=== PATIENT | male | born 1940 | race Caucasian/White ===

== ENCOUNTER 2018-12-10 20:46 | Observation (INO) ==
--- NOTE | 2018-12-11 00:11 | Internal Med History&Physical ---
Date of Encounter: 12/11/18 Time of Encounter: 00:09 Internal Medicine - H&P: HPI Admitted From: Home History of present illness: Mr. YEAGER is a 78 year old male with past medical history of atrial fibrillation on Coumadin presented to [facility] transfer from [facility]. [id number]-hycc encounter occurred at 12:10am. Patient stated the yesterday evening having chest discomfort on the left side nonradiating and worsened with laying on his left, no alleviation lasting for a <10 minutes intermittent with no association of nausea, vomiting, diaphoresis, shortness of breath, abdominal pain. Patient then went to bed and woke up and was trying to do his bicycle exercise that he normally can do for an hour. Patient states this morning patient was unable to do even 10 minutes. Patient then subsequently went to urgent care where he was sent to the ER and while in the ER patient was transferred here. Patient admits of having history of A. fib and has been on warfarin. Patient reported history of cardiac murmur that is being followed up with no intervention being done previously. Personally reviewed patient's past medical, surgical, family and social history. Patient states that has history of large prostate where he underwent surgery and has been taking tamsulosin for BPH. Patient denied history of kidney disease in the past. Family significant for paternal on my, does not smoke drink or do drugs lives and functions very independent at home. No recent surgeries with most recent being a surgery in 2007 knee replacement. CODE STATUS was discussed and the patient proceeded with full code. Past Med Surg Social Fam HX - Past Medical History Medical history: atrial fibrillation, diabetes, hyperlipidemia, hypertension Psychiatric history: no psych history - Past Surgical History Additional surgical history: appy, tonsilectomy, skin grafts, prostate surgery, knee replacement - Social History Smoking Status: Never smoker Smokeless Tobacco Status: No Alcohol use: rarely Drug use: none Internal Medicine - H&P: Meds Allergy/AdvReac Type Severity Reaction Status Date / Time No Known Allergies Allergy Verified 12/11/18 00:21 All Systems PM: A 10-system review of systems was performed and is negative for pertinent findings except as documented above in the HPI. Review of systems: General: No unintentional weightloss, No fever Head: No headahce, No injury. Ears: No discharge, No earache Eyes: No drainage, No eye pain Mouth and Throat: No new ulcers, No pain Nose and Sinus: No new congestion, No pain, Respiratory: No cough, No sputum production, No dyspnea Cardiovascular: + chest pain, No palpitations. Gastrointestinal: No nausea, No vomiting. No abdominal pain. Genital Tract: No discharge, No pain Urinary Tract: No dysuria, No discharge. MSK: + joint pain, No new/worsening muscle ache. Endocrine: No cold intolerance, No polyuria Psychological: No suicidal, No homocidal ideation. - Constitutional Vitals: Temp Pulse Resp BP Pulse Ox 98.7 F 76 15 140/90 95 12/10/18 23:30 12/10/18 23:30 12/10/18 23:30 12/10/18 23:30 12/10/18 23:30 Exam: General Appearance: Appearing as age, well-nourished in mild acute distress. Head: Atraumatic normocephalic Skin: Normal texture, normal turgor, warm, dry. Keratotic growth noted on the left hand. Eyes: Conjunctivae not pale with no erythema, drainage, or ulcers. Anicteric. strabismus Neck: No Lymphadenopathy in the anterior/posterior cervical chain. No thyromegaly, masses or ulcers. Trachea midline. Heart: tachycardic, grade 5 systolic murmurs. Capillary refill 3 seconds Lungs: No accessory muscle usage, lungs clear to auscultation bilaterally, no wheezes or crackles. Extremities: trace pitting edema, No clubbing, No cyanosis. Abdomen: Non-distended, normoactive bowel sounds. non-tender to palpation, no hepatomegally. No guarding. Neuro: AOx3 with no new sensory loss or focal deficits. MSK: Strength 5/5 Upper extremity equal bilaterally. Strength 5/5 Lower extremity equal bilaterally Internal Med - H&P Results - Labs CBC & Chem 7: 12/11/18 00:22 12/11/18 00:22 - Summary of Assessment and Plan Summary of Assessment and Plan: 1.Chest pain: EKG my interpretation shows suspicion for Atrial flutter. Troponin trending. Cardiology consultation 2.Left Ureter stone with hydronephrosis: Complicated with ALYSSIA. Normal saline with tamsulosin. Urology consulted. Appreciated recommendations. NPO past midnight possible procedure in the AM. 3.Atrial flutter: history of A.fib on coumadin Cardiology consultation. 4. Severe aortic stenosis: Symptomatic: Patient reported was able to do treadmill for 1 hour each morning and is now decreased to 10 minutes. Cardiology consultation. Echo report reviewed which showed a PA pressure of 32. Repeat echo pending DVT prophylaxis: Heparin Disposition: Patient anticipated hospital stay less than 2 days - Time Spent With Patient Total time spent is greater than 38 minutes 50% in coordination of care (as documented) at patient's floor/unit and/or counseling patient: Greater than 35 minutes
[2018-12-11 00:35] LABS: Basophils % 0.4 %; Eosinophils % 0.2 %; Hematocrit 47.8 % (37.5-50.1); Hemoglobin 16.2 g/dL (12.9-16.9); Immature Granulocytes % 0.4 % (0-4); Lymphocytes # 0.9 K/mcL (0.6-4.6); Mean Corpuscular HGB Conc 33.9 g/dL (31.6-35.5); Mean Corpuscular Hemoglobin 32.5 pg (28.0-33.3); Mean Platelet Volume 9.2 fL (9.4-12.4); Monocytes # 0.9 K/mcL (0.0-1.3); Monocytes % 11.2 %; Neutrophils # 6.2 K/mcL (1.6-8.9); Platelet Count 119 K/mcL (140-400); Red Blood Count 4.98 M/mcL (4.19-5.50); Red Cell Distribution Width 12.9 % (11.5-14.5); Segmented Neutrophils % 76.8 %
[2018-12-11 00:42] LABS: INR 3.3; Prothrombin Time 37.5 Seconds (9.4-12.1)
[2018-12-11 00:56] LABS: Calcium 9.6 mg/dL (8.6-10.3); Potassium 4.3 mEq/L (3.5-5.1); Troponin I 0.03 ng/mL (< 0.04)
--- NOTE | 2018-12-11 01:20 | Event Note ---
Date of Encounter: 12/11/18 Time of Encounter: 01:19 Labs showed improved Cr. Patient denied hx of CKD. Acute kidney disease: Continue IVF, discussed case with urology. will keep NPO past midnight for possible intervention.
[2018-12-11 01:28] LABS: Magnesium 2.5 mg/dL (1.6-2.6); Phosphorous 2.2 mg/dL (2.7-4.5)
[2018-12-11] MEDS ORDERED: Acetaminophen 325 MG TABLET PO PRN ×2 (01:30→16:43)
[2018-12-11] MEDS: *HR* OxyCODONE Immed Rel 5 MG TABLET PO PRN ×3 (03:00→15:10)
[2018-12-11] MEDS ORDERED: 0.9 % Sodium Chloride 1,000 ML IVC SCH ×2 (08:00→16:43)
--- NOTE | 2018-12-11 08:29 | Urology - Consult Note ---
Date of Encounter: 12/11/18 Time of Encounter: 08:27 - Assessment and Plan (1) Ureteral stone with hydronephrosis Current Visit: Yes Status: Acute Assessment and plan: Patient has been acutely ill from the distal ureteral stone. Plan to proceed with ureteroscopic stone extraction and ureteral stent placement today. Patient is amenable to this plan. All questions were addressed. Alternatively, we did discuss trial of passage. (2) Acute renal insufficiency Current Visit: Yes Status: Acute Assessment and plan: Unknown baseline renal function. I suspect he has acute renal insufficiency secondary to the stone. Should resolve with stone extraction and stent placement (3) Renal lesion Current Visit: Yes Status: Acute Assessment and plan: CT scan identified a 3.7 cm renal lesion not fully evaluated because no contrast was seen. We will proceed with contrast imaging study as an outpatient to verify benign in appearance Urology CN:PATITO Consult date: 12/11/18 Reason for consult Urology: Gross Hematuria History of present illness: 78-year-old male transferred from [facility] with acute illness over the last 3 days. Acute renal insufficiency. Hematuria. CT scan reveals a 2 mm distal left ureteral stone. He continues to have discomfort. He has no history of kidney stones. Creatinine at [facility] was 1.9. Currently 1.77. Past Med Surg Social Fam HX - Past Medical History Medical history: atrial fibrillation, diabetes, hyperlipidemia, hypertension Psychiatric history: no psych history - Past Surgical History Additional surgical history: appy, tonsilectomy, skin grafts, prostate surgery, knee replacement - Social History Smoking Status: Never smoker Smokeless Tobacco Status: No Alcohol use: rarely Drug use: none Medications and Allergies Ascorbic Acid [Vitamin C] 500 mg PO DAILY 12/11/18 [History] Ergocalciferol (VITAMIN D2) [Vitamin D2] 50,000 unit PO QWEEK 12/11/18 [History] Ferrous Sulfate [Iron] 325 mg PO BID 12/11/18 [History] Furosemide [Lasix] 20 mg PO DAILY 12/11/18 [History] GlipiZIDE [Glucotrol] 10 mg PO 0800 12/11/18 [History] Loratadine [Allergy Relief] 10 mg PO DAILY 12/11/18 [History] Pantoprazole Sodium 40 mg PO DAILY 12/11/18 [History] Simvastatin [Zocor] 20 mg PO HS 12/11/18 [History] Tamsulosin [Flomax] 0.4 mg PO DAILY 12/11/18 [History] Warfarin [Coumadin] 5 mg PO 1800 12/11/18 [History] Allergy/AdvReac Type Severity Reaction Status Date / Time No Known Allergies Allergy Verified 12/11/18 00:21 Review of Systems - Constitutional fatigue, no fever(s) - EENT Nose, mouth and throat: no dizziness - Cardiovascular no chest pain - Respiratory no cough - Gastrointestinal abdominal pain, nausea - Genitourinary hematuria, urinary hesitancy, urinary urgency - Musculoskeletal back pain - Integumentary no lesions - Neurological no confusion - Psychiatric no anxiety - Hematologic/Lymphatic no easy bleeding - Allergic/Immunologic no throat swelling Exam Initial Vital Signs Temp Pulse Resp BP Pulse Ox 98.7 F 76 15 140/90 95 12/10/18 23:30 12/10/18 23:30 12/10/18 23:30 12/10/18 23:30 12/10/18 23:30 - General physical appearance Present: well developed, no distress, no pain - Eyes Present: PERRL - ENT Present: normal nares, no hearing loss - Neck Present: no masses, no lymphadenopathy - Respiratory Present: normal respiratory effort - Cardiovascular Cardiovascular exam IM: RRR - Abdomen Abdomen: Present: soft. Absent: suprapubic tenderness - Integumentary Present: no rash, no abnormal pigmentation, other (Cutaneous horn on his left hand) - Neurologic Present: normal coordination. Absent: disoriented, confused - Musculoskeletal Present: normal gait Urology Results - Labs 12/11/18 00:22 12/11/18 00:22 Abnormal lab results Plt Count 119 K/mcL (140-400) L 12/11/18 00:22 MPV 9.2 fL (9.4-12.4) L 12/11/18 00:22 PT 37.5 Seconds (9.4-12.1) H 12/11/18 00:22 Carbon Dioxide 21 mEq/L (23-29) L 12/11/18 00:22 Creatinine 1.77 mg/dL (0.70-1.30) H 12/11/18 00:22 Est GFR ( Amer) 45 (> 60) L 12/11/18 00:22 Est GFR (Non-Af Amer) 37 (> 60) L 12/11/18 00:22 Glucose 158 mg/dL (70-105) H 12/11/18 00:22 POC Glucose 151 mg/dL (70-99) H 12/11/18 00:30 Phosphorus 2.2 mg/dL (2.7-4.5) L 12/11/18 00:22 Diabetes panel 12/11/18 Range/Units 00:22 Sodium 136 (136-145) mEq/L Potassium 4.3 (3.5-5.1) mEq/L Chloride 105 (98-107) mEq/L Carbon Dioxide 21 L (23-29) mEq/L BUN 20 (8-23) mg/dL Creatinine 1.77 H (0.70-1.30) mg/dL Glucose 158 H (70-105) mg/dL Calcium 9.6 (8.6-10.3) mg/dL Calcium panel 12/11/18 Range/Units 00:22 Calcium 9.6 (8.6-10.3) mg/dL Phosphorus 2.2 L (2.7-4.5) mg/dL Pituitary panel 12/11/18 Range/Units 00:22 Sodium 136 (136-145) mEq/L Potassium 4.3 (3.5-5.1) mEq/L Chloride 105 (98-107) mEq/L Carbon Dioxide 21 L (23-29) mEq/L BUN 20 (8-23) mg/dL Creatinine 1.77 H (0.70-1.30) mg/dL Glucose 158 H (70-105) mg/dL Calcium 9.6 (8.6-10.3) mg/dL Adrenal panel 12/11/18 Range/Units 00:22 Sodium 136 (136-145) mEq/L Potassium 4.3 (3.5-5.1) mEq/L Chloride 105 (98-107) mEq/L Carbon Dioxide 21 L (23-29) mEq/L BUN 20 (8-23) mg/dL Creatinine 1.77 H (0.70-1.30) mg/dL Glucose 158 H (70-105) mg/dL Calcium 9.6 (8.6-10.3) mg/dL All other labs normal. Consult Discharge Plan - Plan Referrals: Jose Elias Larose, [Primary Care Provider] -
--- NOTE | 2018-12-11 08:33 | Anesthesia Evaluation PreOp ---
Date of Encounter: 12/31/18 - Past History Planned Operation: cysto stent stone extraction Cardiac History: HTN, Hyperlipidemia, Arrhythmia (a fib), Other (severe aortic stenosis Valve area 0.89 cm2 from 03/19.) Other Medical History: Diabetes Type II Anesthesia History: No Prior Anesthetic Complications, Past Anesthesia (appy, tonsilectomy, skin grafts, prostate surg, TKA) Alcohol Use: rarely Drug use: none Medications and Allergies Ascorbic Acid [Vitamin C] 500 mg PO DAILY 12/11/18 [History] Ergocalciferol (VITAMIN D2) [Vitamin D2] 50,000 unit PO TH 12/11/18 [History] Ferrous Sulfate [Iron] 325 mg PO BID 12/11/18 [History] Furosemide [Lasix] 20 mg PO DAILY 12/11/18 [History] GlipiZIDE [Glucotrol] 10 mg PO 0800 12/11/18 [History] Loratadine [Allergy Relief] 10 mg PO DAILY 12/11/18 [History] Pantoprazole Sodium 40 mg PO DAILY 12/11/18 [History] Simvastatin [Zocor] 20 mg PO HS 12/11/18 [History] Tamsulosin [Flomax] 0.4 mg PO DAILY 12/11/18 [History] Warfarin [Coumadin] 5 mg PO 1800 12/11/18 [History] Allergy/AdvReac Type Severity Reaction Status Date / Time No Known Allergies Allergy Verified 12/11/18 00:21 - Meds/Allergy Pre-op Review Medications Reviewed: Yes Allergies Reviewed: Yes Beta Blockers on Current Med List: No Anesthesia Results - Labs 12/11/18 00:22 12/11/18 00:22
--- NOTE | 2018-12-11 09:53 | Event Note ---
Date of Encounter: 12/11/18 Time of Encounter: 09:53 Patient seen and examined this morning at bedside. Admitted overnight for hydronephrosis and ALYSSIA due to ureteral stone. Urology was consulted. Patient had also some chest discomfort just lasting for seconds and was atypical in nature. Troponin were negative. Did not have any chest pain since admission. Patient has known severe aortic stenosis and had a plan for outpatient follow-up for possible surgical evaluation. Awaiting follow-up echocardiogram. Discussed with patient that he is moderate to high risk of cardiac complication for the low risk procedure given his severe aortic stenosis. He is already anticoagulated for A. fib/aflutter. Plan for stone extraction and stent placement per urology.
--- NOTE | 2018-12-11 12:41 | Cardiology Consult Note ---
Date of Encounter: 12/11/18 Time of Encounter: 12:38 Assessment and Plan (1) Aortic stenosis Current Visit: Yes Status: Acute Severe on outside echocardiogram obtained with a mean gradient of 31 mmHg. Repeat echocardiogram in-house to reevaluate significance of his aortic stenosis Qualifiers: Cardiac valve disease etiology: nonrheumatic Qualified Code(s): I35.0 - Nonrheumatic aortic (valve) stenosis (2) Afib Current Visit: Yes Status: Acute On Coumadin for stroke risk reduction with atrial fib/flutter Qualifiers: Atrial fibrillation type: paroxysmal Qualified Code(s): I48.0 - Paroxysmal atrial fibrillation (3) Chest pain Current Visit: Yes Status: Acute Atypical almost noncardiac chest pain with negative cardiac markers and unremarkable EKG from an ischemic standpoint. With severe aortic stenosis patient likely a candidate for an ischemic workup with an [facility] in the near future for possible AVR Qualifiers: Chest pain type: precordial pain Qualified Code(s): R07.2 - Precordial pain Discussion w patient/family: The assessment and plan as outlined above was discussed with the patient and/or family members who expressed understanding and agreement. All questions were answered. Thank you for involving us in the care of your patient. Please call with any questions. History of Present Illness Consult date: 12/11/18 Consult reason: Chest Pain Chief complaint: Flank pain History of present illness: Mr. Guthrie is a 78 year old male with history of severe aortic stenosis on echoca rdiogram from outside hospital presents for reason of flank pain and left pectoral type discomfort. His left pectoral chest pain is very atypical almost noncardiac in etiology. His cardiac markers are negative and EKG shows atrial flutter with a mildly rapid response. Patient is anticoagulated with an elevated INR for stroke risk reduction. Patient states last ischemic eval was many years ago as was his most recent echocardiogram. Will obtain echocardiogram to evaluate significance and prog ression of his aortic stenosis. A cardiac ischemic workup is reasonable to obtain with a chemical stress test inpatient versus outpatient according to hospital course. Past Med Surg Social Fam HX - Past Medical History Medical history: atrial fibrillation, diabetes, hyperlipidemia, hypertension Psychiatric history: no psych history - Past Surgical History Additional surgical history: appy, tonsilectomy, skin grafts, prostate surgery, knee replacement - Social History Smoking Status: Never smoker Smokeless Tobacco Status: No Alcohol use: rarely Drug use: none Medications and Allergies Ascorbic Acid [Vitamin C] 500 mg PO DAILY 12/11/18 [History] Ergocalciferol (VITAMIN D2) [Vitamin D2] 50,000 unit PO QWEEK 12/11/18 [History] Ferrous Sulfate [Iron] 325 mg PO BID 12/11/18 [History] Furosemide [Lasix] 20 mg PO DAILY 12/11/18 [History] GlipiZIDE [Glucotrol] 10 mg PO 0800 12/11/18 [History] Loratadine [Allergy Relief] 10 mg PO DAILY 12/11/18 [History] Pantoprazole Sodium 40 mg PO DAILY 12/11/18 [History] Simvastatin [Zocor] 20 mg PO HS 12/11/18 [History] Tamsulosin [Flomax] 0.4 mg PO DAILY 12/11/18 [History] Warfarin [Coumadin] 5 mg PO 1800 12/11/18 [History] Allergy/AdvReac Type Severity Reaction Status Date / Time No Known Allergies Allergy Verified 12/11/18 00:21 All Systems Review: The remainder of the systems were reviewed and are negative Physical Examination Vital Signs, Last 4 Hours Temp Pulse Resp BP Pulse Ox 12/11/18 12:18 98.3 F 84 16 146/88 94 General: Conversant (3/6 systolic ejection murmur over left pectoral region), No Apparent Distress HEENT: Atraumatic, Normocephaly, Mucus Membranes Moist Neck: No JVD, Normal carotid pulses Cardiac: Reg Rate and Rhythm, Normal S1 and S2, No Murmur Lungs: Normal Breath Sounds, No Wheeze, Rales, Rhonchi Neuro: Alert and responsive, No focal deficits noted Abdomen: Soft, Non-Tender Skin: No rashes noted on visualized skin Musculoskeletal: No Chest Wall Tenderness Extremities: No Clubbing, No Cyanosis, No Edema, Normal Pulses Results 12/11/18 00:22 12/11/18 00:22 Lab Results 12/11/18 12/11/18 12/11/18 00:22 00:22 00:22 WBC 8.0 Hgb 16.2 Hct 47.8 Plt Count 119 L INR 3.3 Sodium 136 Potassium 4.3 Chloride 105 Carbon Dioxide 21 L BUN 20 Creatinine 1.77 H Glucose 158 H Calcium 9.6 Magnesium 2.5 Troponin I 0.03 12/11/18 06:24 WBC Hgb Hct Plt Count INR Sodium Potassium Chloride Carbon Dioxide BUN Creatinine Glucose Calcium Magnesium Troponin I 0.03 Consult Discharge Plan - Plan Referrals: Jose Elias Larose DO [Primary Care Provider] -
[2018-12-11 15:43] VITALS: BP 147/89
[2018-12-11] MEDS ORDERED: *HR* Propofol 200 MG/20 ML VIAL IVP ONE (16:02)
--- NOTE | 2018-12-11 16:34 | Event Note ---
Date of Encounter: 12/11/18 Time of Encounter: 16:31 pt seen in holding room in preparation for surgery. Anesthesia reviewed ECHO from today that reveals worsening severe aortic stenosis. They have deemed general anesthesia is too high of risk without treatment of the aortic stenosis. Ureteroscopic stone extraction canceled today. I discussed with Dr. Young from the hospitalist service. Plan to transfer to a tertiary care facility with the ability to manage the aortic stenosis. Urology sign off
[2018-12-11] MEDS ORDERED: *HR* OxyCODONE Immed Rel 5 MG TABLET PO PRN (16:43)
--- NOTE | 2018-12-11 17:58 | Discharge Summary ---
- NOTES TO OUTPATIENT PROVIDER Notes to Outpatient Provider: Patient transferred to [facility] for further management of his aortic stenosis and subsequently ureteral stent. Date of Encounter: 12/11/18 Time of Encounter: 17:55 - Discharge Diagnosis (1) Acute renal insufficiency Priority: Primary Status: Acute (2) Afib Priority: Secondary Status: Acute Qualifiers: Atrial fibrillation type: paroxysmal Qualified Code(s): I48.0 - Paroxysmal atrial fibrillation (3) Aortic stenosis Priority: Secondary Status: Acute Qualifiers: Cardiac valve disease etiology: nonrheumatic Qualified Code(s): I35.0 - Nonrheumatic aortic (valve) stenosis (4) Chest pain Priority: Primary Status: Acute Qualifiers: Chest pain type: precordial pain Qualified Code(s): R07.2 - Precordial pain (5) Ureteral stone with hydronephrosis Priority: Primary Status: Acute Hospital course: Mr. Guthrie is a 78 year old male with past medical history of atrial fibrillation, diabetes, hypertension, hyperlipidemia who came in in from [facility] due to left-sided back pain and chest pain. Patient was found to have ALYSSIA left-sided ureteric stone with hydronephrosis. Patient was on Coumadin for atrial fibrillation history and has history of severe aortic stenosis. Cardiology was consulted for chest pain and aortic stenosis. Patient was planned to have left ureteric stent however repeat echocardiogram showed progression of aortic stenosis. With increased severity patient was to high risk for anesthesia without her dressing aortic stenosis. Patient is chest pain was atypical in nature and troponin remain negative without any ischemic signs and EKG. Patient will need ischemic cardiac workup before he can get his aortic valve addressed. Patient needs tertiary care facility for management of his current medical issues on an urgent basis. After initially refusing to be transfer patient finally agreed after talking to the family to transfer to [facility]. All transfer arrangement has been arranged and awaiting bed at [facility]. Discharge discussed with: patient, family, nurse, media consultant - Time Spent with Patient Total time spent providing and/or coordinating discharge services: Time spent: Greater than 30 minutes (40) - Discharge Medications Prescriptions: Continued Warfarin [Coumadin] 5 mg PO 1800 Tamsulosin [Flomax] 0.4 mg PO DAILY GlipiZIDE [Glucotrol] 10 mg PO 0800 Simvastatin [Zocor] 20 mg PO HS Pantoprazole Sodium 40 mg PO DAILY Loratadine [Allergy Relief] 10 mg PO DAILY Furosemide [Lasix] 20 mg PO DAILY Ferrous Sulfate [Iron] 325 mg PO BID Ergocalciferol (VITAMIN D2) [Vitamin D2] 50,000 unit PO TH Ascorbic Acid [Vitamin C] 500 mg PO DAILY Home Medications: Ascorbic Acid [Vitamin C] 500 mg PO DAILY 12/11/18 [History] Ergocalciferol (VITAMIN D2) [Vitamin D2] 50,000 unit PO TH 12/11/18 [History] Ferrous Sulfate [Iron] 325 mg PO BID 12/11/18 [History] Furosemide [Lasix] 20 mg PO DAILY 12/11/18 [History] GlipiZIDE [Glucotrol] 10 mg PO 0800 12/11/18 [History] Loratadine [Allergy Relief] 10 mg PO DAILY 12/11/18 [History] Pantoprazole Sodium 40 mg PO DAILY 12/11/18 [History] Simvastatin [Zocor] 20 mg PO HS 12/11/18 [History] Tamsulosin [Flomax] 0.4 mg PO DAILY 12/11/18 [History] Warfarin [Coumadin] 5 mg PO 1800 12/11/18 [History] Allergies/Adverse Reactions: Allergy/AdvReac Type Severity Reaction Status Date / Time No Known Allergies Allergy Verified 12/11/18 00:21 Date of admission: 12/10/18 23:04 Primary care physician: Jose Elias Larose DO Consults: 12/11/18 01:17 Consult to Urology [CONS] Routine Consulting Provider: Urology [place] Reason for Consult: Left 2mm kidney stone with left hydronephrosis and ALYSSIA. Call Completed: No 12/11/18 06:00 Consult to Cardiology [CONS] Routine Comment: Consulting Provider: Cardiology Marisol Reason for Consult: severe symptomatic and new onset A.flutter Call Completed: No Discharging clinician: Rubi Rock Young - Constitutional Vitals: Temp Pulse Resp BP Pulse Ox 98.7 F 75 16 147/89 94 12/11/18 15:36 12/11/18 15:36 12/11/18 15:36 12/11/18 15:36 12/11/18 15:36 Exam: General: In no acute distress. Respiratory exam: CTAB. no accessory muscle use, rales, rhonchi, wheezes Cardiovascular exam: +S1, +S2. pansytolic harsh murmur. GI/Abdominal exam: Non-tender, Non-distended, normal bowel sounds, soft, no peritoneal signs. Extremities exam: no pedal edema, pulses palpable in b/l lower extremities. no calf tenderness Neurological exam: CN II-XII intact, AO X3, no focal deficits. Skin exam: lt hand keratotic growth. - Patient Status Disposition: Transfer Hospital Swing Bed Condition: Fair - Discharge Instructions Follow Up With: Jose Elias Larose DO [Primary Care Provider] -
[2018-12-11] MEDS ORDERED: *HR* Warfarin 5 MG TABLET PO SCH (18:00)
[2018-12-12] MEDS ORDERED: GlipiZIDE 5 MG TABLET PO SCH (08:00)
[2018-12-12] MEDS ORDERED: Furosemide 20 MG TABLET PO SCH (09:00)
--- NOTE | 2018-12-12 15:35 | Electrocardiograph Report ---
[place] [id number] Test Date: 2018-12-10 Pat Name: Devon Guthrie Department: 111 Room: 2NE27 Gender: M Network Intern: : 1940 Requested By: Karissa Orozco Order Number: [id number] Reading MD: Ian Buenrostro Measurements Intervals [place] Rate: 76 P: NC: 0 QRS: 38 QRSD: 131 T: -9 QT: 346 QTc: 376 Interpretive Statements ATRIAL FLUTTER/TACHYCARDIA INTRAVENTRICULAR CONDUCTION DELAY POSSIBLE INFERIOR MYOCARDIAL INFARCTION, OF INDETERMINATE AGE Electronically Signed On 12-12-2018 15:34:00 EDT by Ian Buenrostro
== END 2018-12-11 19:45 | disposition other institution (70) ==
LOC: 2NENU → SUATTDRO 23:04
PROVIDERS: ADMIT Family Medicine; ATTEND Internal Medicine